=== PATIENT | female | born 1990 | race Caucasian/White ===

== ENCOUNTER 2017-03-05 10:01 | Emergency (ER) | payer OTHER ==
[~2017-03-05] VITALS: Ht 157.5 cm; Wt 67.2 kg
[2017-03-05 10:04] VITALS: BP 108/62
[2017-03-05] MEDS ORDERED: MOTRIN600 MG PO (10:14)
== END 2017-03-05 10:55 | disposition home or self-care (01) ==
LOC: EME 10:01
DX: S16.1XXA Strain of muscle, fascia and tendon at neck level, initial encounter (principal); X50.9XXA Other and unspecified overexertion or strenuous movements or postures, initial encounter; Y93.89 Activity, other specified
CPT/HCPCS: 99281; 99283